=== PATIENT | male | born 1985 | race African-American/Black ===

== ENCOUNTER 2021-07-15 18:34 | Emergency (ER) | payer MEDICAID, OTHER ==
[~2021-07-15] VITALS: Ht 188 cm; Wt 91.0 kg
[2021-07-15] MEDS ORDERED: PANTOPRAZOLE SODIUM 40 MG/VIAL IV STA (19:51)
[2021-07-15] MEDS ORDERED: MAGNESIUM/ALUMINUM HYDROXIDE/SIMETHICONE 30ML UDC PO STA (19:51)
[2021-07-15] MEDS ORDERED: ONDANSETRON HCL 4MG/2ML INJ IV STA (19:51)
[2021-07-15] MEDS ORDERED: VISCOUS LIDOCAINE 2% 15 ML UDC PO STA (19:51)
[2021-07-15] MEDS ORDERED: SODIUM CHLORIDE 0.9% 1,000 ML IV ONE (20:00)
[2021-07-15] MEDS ORDERED: KETOROLAC 15MG/ML VIAL IV ONE (20:30)
[2021-07-15 20:43] LABS: EOSINOPHILS % 2.9 % (0.0-5.0); HEMOGLOBIN. 14.1 g/dL (14.0-18.0); LYMPHOCYTES % 9.3 % (20.0-50.0); MEAN CORPUSCULAR HEMOGLOBIN 28.6 pg (28.0-32.0); MEAN PLATELET VOLUME 8.9 fl (7.4-10.4); MONOCYTES % 2.5 % (2.0-8.0); NEUTROPHILS % 84.3 % (40.0-76.0); PLATELET 246 x1000/uL (130-400); RED BLOOD CELL COUNT 4.94 mill/uL (4.7-6.1); RED CELL DISTRIBUTION WIDTH 14.9 % (11.6-14.6)
[2021-07-15 20:49] LABS: CHLORIDE 107 mEq/L (98-107)
[2021-07-15 20:52] LABS: PROTHROMBIN TIME 10.3 sec (9.6-11.0)
[2021-07-15 20:53] LABS: ETHANOL BLOOD < 10 mg/dL
[2021-07-15 21:04] LABS: CLARITY URINE CLEAR (CLEAR); COLOR URINE YELLOW (YELLOW); KETONES URINE 1+ (NEGATIVE); LEUKOCYTE ESTERASE URINE TRACE (NEGATIVE); NITRITE URINE NEGATIVE (NEGATIVE); OCCULT BLOOD URINE NEGATIVE (NEGATIVE); PH URINE >=9.0 (4.5-8.0); PROTEIN URINE 1+ (NEGATIVE); SPECIFIC GRAVITY URINE 1.024 (1.005-1.030)
[2021-07-15 21:16] LABS: *AMPHETAMINES SCREEN URINE NEGATIVE (NEGATIVE); *BARBITURATES SCREEN URINE NEGATIVE (NEGATIVE); *BENZODIAZEPINES SCREEN URINE NEGATIVE (NEGATIVE); *COCAINE SCREEN URINE NEGATIVE (NEGATIVE); METHADONE URINE SCREEN NEGATIVE (NEGATIVE)
[2021-07-15 21:17] LABS: CANNABINOID URINE SCREEN PRESUMTIVE POSITIVE (NEGATIVE); OPIATES URINE SCREEN NEGATIVE (NEGATIVE); PHENCYCLIDINE URINE SCREEN NEGATIVE (NEGATIVE)
[2021-07-15] MEDS ORDERED: PROT40 MT (21:18)
[2021-07-15] MEDS ORDERED: ONDA4TAB5 MT (21:18)
[2021-07-15 21:30] VITALS: BP 126/81
== END 2021-07-15 21:59 | disposition left against medical advice (07) ==
LOC: ER 18:49
DX: M54.89 Other dorsalgia (principal); R11.2 Nausea with vomiting, unspecified; E86.0 Dehydration; Z72.89 Other problems related to lifestyle; D72.829 Elevated white blood cell count, unspecified; R82.71 Bacteriuria; R94.31 Abnormal electrocardiogram [ECG] [EKG]; F12.90 Cannabis use, unspecified, uncomplicated
CPT/HCPCS: 36415; 71045; 80053; 80305; 80320; 81003; 83690; 85025; 85610; 86850; 86900; 86901; 93005; 96374; 96375; 99285; C9113; J1885; J2405; J7030; G0480

== ENCOUNTER 2021-12-03 19:23 | Emergency (ER) | payer MEDICAID ==
[~2021-12-03 19:23] MED LIST: ONDA4TAB5 MT; PROT40 MT
== END 2021-12-03 21:18 | disposition left against medical advice (07) ==
LOC: ER 19:23
DX: Z53.21 Procedure and treatment not carried out due to patient leaving prior to being seen by health care provider (principal)

== ENCOUNTER 2022-11-02 10:03 | Emergency (ER) | payer MEDICAID ==
[~2022-11-02] VITALS: Ht 185.4 cm; Wt 105.0 kg
[2022-11-02 10:45] VITALS: BP 146/91
== END 2022-11-02 12:32 | disposition left against medical advice (07) ==
LOC: ER 10:03
DX: Z53.21 Procedure and treatment not carried out due to patient leaving prior to being seen by health care provider (principal)

== ENCOUNTER 2023-02-25 07:51 | Emergency (ER) | payer MEDICAID ==
[~2023-02-25] VITALS: Ht 190.5 cm; Wt 91.0 kg
[2023-02-25] MEDS ORDERED: MORPHINE SULFATE 4 MG/ML CPJ (NOT FOR IM USE) IV STA (08:38)
[2023-02-25] MEDS ORDERED: SODIUM CHLORIDE 0.9% 1,000 ML IV ONE (08:45)
[2023-02-25] MEDS ORDERED: LORAZEPAM 2MG/ML CPJ IV ONE (08:45)
[2023-02-25 09:19] LABS: BASOPHILS % 0.4 % (0.0-2.0); EOSINOPHILS % 2.1 % (0.0-5.0); HEMATOCRIT. 43.7 % (42.0-52.0); HEMOGLOBIN. 15.1 g/dL (14.0-18.0); MEAN CORPUSCULAR HEMOGLOBIN 28.7 pg (28.0-32.0); MEAN CORPUSCULAR VOLUME 83.1 fL (80.0-94.0); MEAN PLATELET VOLUME 8.6 fl (7.4-10.4); MONOCYTES % 7.6 % (2.0-8.0); NEUTROPHILS % 64.9 % (40.0-76.0); PLATELET 355 x1000/uL (130-400); RED BLOOD CELL COUNT 5.26 mill/uL (4.7-6.1)
[2023-02-25 09:26] LABS: CHLORIDE 104 mEq/L (98-107)
[2023-02-25 11:40] VITALS: BP 138/96
== END 2023-02-25 11:42 | disposition home or self-care (01) ==
LOC: ER 07:51
DX: F14.10 Cocaine abuse, uncomplicated (principal); R07.89 Other chest pain; F12.10 Cannabis abuse, uncomplicated
CPT/HCPCS: 36415; 71045; 80053; 84484; 85025; 96360; 96361; 99284; J7030; Z7610

== ENCOUNTER 2025-05-01 03:31 | Emergency (ER) | payer MEDICAID, OTHER ==
[~2025-05-01] VITALS: Ht 182.9 cm; Wt 78.0 kg
[2025-05-01 03:55] VITALS: BP 132/96; PULSE 92; RESP 16; TEMP 36.9; O2SAT 97
== END 2025-05-01 04:28 | disposition home or self-care (01) ==
LOC: ER 03:31
DX: Z79.899 Other long term (current) drug therapy (principal); F14.90 Cocaine use, unspecified, uncomplicated; F12.90 Cannabis use, unspecified, uncomplicated
CPT/HCPCS: 99283